=== PATIENT | female | born 2000 ===

== ENCOUNTER 2021-04-06 07:09 | Day surgery (SDC) | payer OTHER ==
[~2021-04-06 07:09] MED LIST: NAPROXEN500 MG PO
== END 2021-04-06 21:00 | disposition home or self-care (01) ==
LOC: CIR.AMB 07:09
PROVIDERS: ATTEND Orthopaedic Surgery Hand Surgery
DX: M66.341 Spontaneous rupture of flexor tendons, right hand (principal)